=== PATIENT | female | born 1990 | race Caucasian/White ===

== ENCOUNTER 2016-07-28 11:13 | Emergency (ER) ==
[2016-07-28 13:50] LABS: MANUAL DIFF NEEDED? NO
[2016-07-28 13:50] LABS: URINE CULTURE NEEDED? NO; URINE MICRO REVIEW NEEDED? NO; URINE SOURCE CLEAN CATCH
[2016-07-28 13:56] LABS: BILIRUBIN URINE NEGATIVE (NEGATIVE); BLOOD URINE NEGATIVE (NEGATIVE); COLOR YELLOW; GLUCOSE URINE NEGATIVE (NEGATIVE); LEUKOCYTES URINE NEGATIVE (NEGATIVE); NITRITE URINE NEGATIVE (NEGATIVE); PROTEIN URINE NEGATIVE (NEGATIVE); SP GRAVITY URINE 1.015; TURBIDITY URINE CLEAR (CLEAR); UROBILINOGEN URINE NORMAL (NORMAL)
[2016-07-28 13:58] LABS: UR EPITHELIAL CELLS <10 /HPF (<10); URINE BACTERIA NEGATIVE /HPF; URINE RBC <10 /HPF (<10); URINE WBC <10 /HPF (<10)
[2016-07-28 14:01] LABS: BASO% 0.2 % (0.0-0.8); EOS# 0.06 X1000 (0.0-0.7); EOS% 1.4 % (0.0-10.0); HEMATOCRIT 35.3 % (37.0-47.0); HEMOGLOBIN 11.3 g/dL (12.0-16.0); LYMPH# 1.52 X1000 (1.2-3.4); LYMPH% 35.3 % (20.5-51.1); MCH 27.9 PG (27-31); MCV 87.2 FL (81-99); MPV 10.9 FL (7.4-10.4); NEUT% 49.1 % (42.2-75.2); PLT 113 X1000 (130-400); RBC 4.05 XMIL (4.2-5.4)
[2016-07-28 14:07] LABS: AGAP 11; ALBUMIN 3.8 g/dL (3.5-5.0); ALKALINE PHOSPHATASE 66 U/L (32-104); AMYLASE 90 U/L (20-200); BUN 10 mg/dL (8-22); CALCIUM 8.9 mg/dL (8.8-10.2); CHLORIDE 108 mmol/L (98-107); COSMO 281; GOT 91 U/L (10-30); GPT 203 U/L (10-36); LIPASE 83 U/L (13-60); POTASSIUM 4.1 mmol/L (3.5-5.1); SODIUM 141 mmol/L (136-145); TCO2 22 mmol/L (25-35); TOTAL BILIRUBIN 0.21 mg/dL (0.20-1.00); TOTAL PROTEIN 7.1 g/dL (6.3-8.3)
--- NOTE | 2016-07-28 14:11 | PROVIDER DOCUMENTATION ---
HPI-Abdominal Pain/GI Problem - General Chief Complaint: Extremity Pain Stated Complaint: BILA LEG PAIN Time Seen by Provider: 07/28/16 12:53 Source: patient Allergies/Adverse Reactions: Patient Allergies Allergy/AdvReac Type Severity Reaction Status Date / Time Penicillins Allergy HIVES Verified 07/28/16 11:22 Home Medications: Home Medication List Medication Instructions Recorded Confirmed Last Taken Type Famotidine [Pepcid] 20 mg PO DAILY #20 tablet 07/28/16 Unknown Rx Ibuprofen [Motrin] 800 mg PO Q8H PRN PRN #20 tablet 07/28/16 Unknown Rx - History of Present Illness-ABD Nature of Presenting Problems: 26 year old WF presents with c/o LUQ abd pain, bilateral lower extremity pain. pt reports the bilateral leg pain developed last night and she has been unable to sleep. the pain starts in bilateral knees, radiates to the hips and the ankles. pt denies ever having had this pain prior. pt reports she was dc'd from incarceration yesterday after a month. pt reports prior to her incarceration, she used IV amphetamines and opiates. she currently lives in a sober living environment. the LUQ abd pain has been present for 36 days, constant. she reports she has never been evaluated for the pain but does have a GI hx of IBS. Abdominal Pain Onset Location: reports: LUQ Pain Radiation: reports: no radiation Quality of Pain: reports: aching, dull Severity in ED: reports: mild Review of Systems - Adult - REVIEW OF SYSTEMS - ADULT Constitutional: reports: no symptoms reported. denies: chills, fever Eyes: reports: no symptoms reported. denies: discharge, blurred vision, double vision, redness Ears, Nose, Mouth & Throat: reports: no symptoms reported. denies: ear discharge, ear pain, nose pain, loose teeth, throat pain, throat swelling Cardiovascular: reports: no symptoms reported. denies: chest pain, palpitations , syncope Respiratory: reports: no symptoms reported. denies: chronic cough, cough, shortness of breath, wheezing Gastrointestinal: reports: see HPI, abdominal pain (LUQ). denies: hematemesis, constipation, diarrhea, difficulty swallowing, frequent heartburn, nausea, poor appetite, rectal bleeding, vomiting Genitourinary: reports: no symptoms reported. denies: dysuria, hematuria, urgency Musculoskeletal: reports: no symptoms reported. denies: bone pain, frequent leg cramps, joint pain, joint swelling, neck pain Integumentary: reports: no symptoms reported. denies: hives, itching, rash, skin sores/ulcer Neurological: reports: no symptoms reported Psychiatric: reports: no symptoms reported Endocrine: reports: no symptoms reported Hematologic/Lymphatic: reports: no symptoms reported Allergic/Immunologic: reports: no symptoms reported All Other Systems: Reviewed and Negative Past History - Adult - PAST MEDICAL HISTORY-ADULT Review of Records: reports: Old Records Reviewed, Nursing Assessment Review, Medications Reviewed, Social history reviewed & non-contributory. Major Childhood Illnesses: reports: denies history Cardiovascular: reports: denies history Respiratory: reports: denies history Gastrointestinal: reports: denies history Obstetrical/Gynecological: reports: denies history Genitourinary: reports: denies history Musculoskeletal: reports: denies history Neurological: reports: denies history Psychiatric: reports: anxiety, depression, psychiatric problems Endocrine/Immune: reports: denies history Other Conditions: reports: denies history - FAMILY HISTORY Family History: PE/DVT - SOCIAL HISTORY Smoking: denies, quit less than 1 year, cigarettes Substance Use: none presently/history of abuse, amphetamines, opiates Alcohol Use Frequency: never Living Situation: group Physical Exam-General - PHYSICAL EXAM-ADULT Initial Vital Signs Reviewed: Yes - CONSTITUTIONAL General Appearance: appears well, alert, mild distress. negative: no apparent distress, moderate distress, lethargic, slow to respond, obtunded, combative - EYES Eyes: pink conjunctivae. negative: conjuctival exudate, pale conjunctivae, sclera injected, scleral icterus, subconjunctival hemorrhage - HEAD, EARS, NOSE, MOUTH & THROAT HENMT: normocephalic/atraumatic, moist mucous membranes, normal ENT inspection, TMs normal, pharynx normal. negative: pharyngeal erythema, tonsillar exudate, TM abnormal, TM obscurred by cerumen, frontal tenderness, maxillary tenderness - NECK Neck: non-tender, full range of motion, supple, normal inspection. negative: C- spine tenderness, limited range of motion, tender lateral, tender midline - RESPIRATORY Respiratory: chest non-tender, lungs clear, normal breath sounds, no pleuratic chest pain, no respiratory distress, no accessory muscle use. negative: respiratory distress, decreased breath sounds, accessory muscle use, crackles, rales, rhonchi, stridor, wheezing - CARDIOVASCULAR Cardiovascular: normal peripheral pulses, regular rate, rhythm - CHEST (BREASTS) Chest/Breast: no tenderness - GASTROINTESTINAL (ABDOMEN) Abdominal Exam: normal bowel sounds, soft, no organomegaly, no pulsatile mass. negative: non tender, distended, guarding, rigid, rebound, tenderness (LUQ), hernia, mass, hepatomegaly, spleenomegaly, McBurney's point tenderness, Ruth' s sign, obturator sign, psoas, Rovsing's sign - GENITOURINARY Female Genitalia/Pelvic Exam: deferred Rectal Exam: deferred Hemoccult Exam: deferred - LYMPHATIC Lymphatic: no adenopathy. negative: cervical node tenderness - MUSCULOSKELETAL Back Exam: normal inspection, no CVA tenderness, no vertebral tenderness. negative: CVA tenderness, decreased range of motion, swelling, vertebral tenderness Extremity: normal range of motion, normal gait, normal inspection, no pedal edema, no calf tenderness, normal capillary refill, pelvis stable, tenderness ( bilateral knee pain with radition to bilateral hips and ankles.). negative: non -tender, abnormal NV exam, calf tenderness, deformity, erythema, inflammation, joint effusion, pulse deficit, pedal edema, slow capillary refill, swelling Peripheral Pulses: radial (R): 3+, radial (L): 3+, dorsalis-pedis (R): 3+, dorsalis-pedis (L): 3+ - SKIN Integumentary: normal color, normal turgor, warm/dry, other (negative for splinter hemorrhages). negative: embolic lesions - NEUROLOGIC Neurologic: grossly normal, no motor/sensory deficits. negative: facial droop, focal weakness, motor weakness, sensory deficit - PSYCHIATRIC Psych/Mental Status: normal mood/affect, normal thought content, normal thought process, oriented x 3 Progress - PLAN OF CARE/RESULTS Progress/Plan/Lab Results: Laboratory Tests 07/28/16 07/28/16 07/28/16 13:29 13:29 13:39 WBC RBC Hgb Hct MCV MCH MCHC RDW Std Deviation Plt Count MPV Immature Gran % (Auto) Neut % (Auto) Lymph % (Auto) Mason % (Auto) Eos % (Auto) Baso % (Auto) Immature Gran # (Auto) Neut # (Auto) Lymph # (Auto) Mason # (Auto) Eos # (Auto) Baso # (Auto) D-Dimer Sodium 141 Potassium 4.1 Chloride 108 H Carbon Dioxide 22 L Anion Gap 11 BUN 10 Creatinine 0.6 Estimated GFR/1.73 m2 > 60 BUN/Creatinine Ratio 17 Glucose 106 H Calculated Osmolality 281 Calcium 8.9 Total Bilirubin 0.21 AST 91 H ALT 203 H Alkaline Phosphatase 66 Total Protein 7.1 Albumin 3.8 Globulin 3.3 Albumin/Globulin Ratio 1.2 Amylase 90 Lipase 83 H Urine Source CLEAN CATCH Urine Color YELLOW Urine Turbidity CLEAR Urine pH 6.0 Ur Specific [place] 1.015 Urine Protein NEGATIVE Ur Glucose (Stick) NEGATIVE Ur Ketones (Stick) NEGATIVE Urine Blood NEGATIVE Urine Nitrite NEGATIVE Urine Bilirubin NEGATIVE Urobilinogen Dipstick NORMAL Urine Leukocytes NEGATIVE Urine WBC (Auto) <10 Urine RBC (Auto) <10 U Epithel Cells (Auto) <10 Urine Bacteria (Auto) NEGATIVE Urine Opiates Screen NONE DETECTED Ur Oxycodone Screen NONE DETECTED Ur Methadone, Qual NONE DETECTED Ur Barbiturates Screen NONE DETECTED Ur Phencyclidine Scrn NONE DETECTED Ur Amphetamines Screen NONE DETECTED U Benzodiazepines Scrn NONE DETECTED Urine Cocaine Screen NONE DETECTED U Cannabinoids Screen NONE DETECTED 07/28/16 07/28/16 13:39 13:39 WBC 4.30 L RBC 4.05 L Hgb 11.3 L Hct 35.3 L MCV 87.2 MCH 27.9 MCHC 32.0 L RDW Std Deviation 14.8 H Plt Count 113 L MPV 10.9 H Immature Gran % (Auto) 0.0 Neut % (Auto) 49.1 Lymph % (Auto) 35.3 Mason % (Auto) 14.0 H Eos % (Auto) 1.4 Baso % (Auto) 0.2 Immature Gran # (Auto) 0.00 Neut # (Auto) 2.11 Lymph # (Auto) 1.52 Mason # (Auto) 0.60 H Eos # (Auto) 0.06 Baso # (Auto) 0.01 D-Dimer 1.21 H Sodium Potassium Chloride Carbon Dioxide Anion Gap BUN Creatinine Estimated GFR/1.73 m2 BUN/Creatinine Ratio Glucose Calculated Osmolality Calcium Total Bilirubin AST ALT Alkaline Phosphatase Total Protein Albumin Globulin Albumin/Globulin Ratio Amylase Lipase Urine Source Urine Color Urine Turbidity Urine pH Ur Specific [place] Urine Protein Ur Glucose (Stick) Ur Ketones (Stick) Urine Blood Urine Nitrite Urine Bilirubin Urobilinogen Dipstick Urine Leukocytes Urine WBC (Auto) Urine RBC (Auto) U Epithel Cells (Auto) Urine Bacteria (Auto) Urine Opiates Screen Ur Oxycodone Screen Ur Methadone, Qual Ur Barbiturates Screen Ur Phencyclidine Scrn Ur Amphetamines Screen U Benzodiazepines Scrn Urine Cocaine Screen U Cannabinoids Screen Orders Category Date Time Status ED: Urine Bedside ORDERED Care 07/28/16 13:02 Active Orthostatic Vital Signs NOW Care 07/28/16 13:03 Active Saline Loc DIRECTED Care 07/28/16 13:02 Active NPO Diet 07/28/16 13:02 Completed ABD/PELVIS/PULM ARTERIES [CT] Stat Exams 07/28/16 16:06 Taken FLAT/UPRIGHT ABD/1 VIEW CHEST [RAD] Stat Exams 07/28/16 13:03 Draft AMYLASE [CHEM] Stat Lab 07/28/16 13:39 Completed CBC WITH ELECTRONIC DIFF [HEME] Stat Lab 07/28/16 13:39 Completed COMPREHENSIVE METABOLIC PANEL [CHEM] Stat Lab 07/28/16 13:39 Completed D-DIMER [CHEM] Stat Lab 07/28/16 13:39 Completed HEPATITIS PROFILE [HH] Stat Lab 07/28/16 17:20 Received LIPASE [CHEM] Stat Lab 07/28/16 13:39 Completed UDS [URINE DRUG SCREEN] Stat Lab 07/28/16 13:29 Completed URINALYSIS W/POSS RFLX CULT [URINALYSIS] Stat Lab 07/28/16 13:29 Completed US [Venous U/S Bilateral Legs] [CV] Stat Ther 07/28/16 14:42 Completed Vital Signs - 24 hr 07/28/16 07/28/16 07/28/16 11:17 13:44 13:45 Temperature 97.8 F Pulse Rate 108 H 86 Pulse Rate [ 87 Sitting] Pulse Rate [ 101 H Standing] Pulse Rate [ 78 Supine] Respiratory 20 18 Rate Blood Pressure 138/86 118/67 Blood Pressure 112/79 [Sitting] Blood Pressure 126/80 [Standing] Blood Pressure 118/67 [Supine] O2 Sat by Pulse 100 100 Oximetry 07/28/16 07/28/16 16:17 18:15 Temperature 98.1 F Pulse Rate 93 H 106 H Pulse Rate [ Sitting] Pulse Rate [ Standing] Pulse Rate [ Supine] Respiratory 17 17 Rate Blood Pressure 118/77 131/83 Blood Pressure [Sitting] Blood Pressure [Standing] Blood Pressure [Supine] O2 Sat by Pulse 100 100 Oximetry Reviewed case with Dr[address] Barrientos, agrees with plan of care and treatment. - XRAY 1 XRAY Study: Chest, Abdomen Impression: Normal - CT/MRI 1 CT Study: Abdomen, Pelvis, Thorax Impression: Abnormal (see EMR) Departure - Departure Time of Disposition Order: 17:59 DIAGNOSIS: LUQ abdominal pain, Leg pain, bilateral, Elevated d-dimer Disposition: HOME 01 Certified Medical Emergency: Emergent Condition: Stable Additional Instructions: Follow up at the [facility]. ED Follow Up Instructions: You have been treated by a care provider in the Emergency Department. These instructions are being provided to you so you can have an understanding of how to care for yourself upon discharge. Upon discharge from the Emergency Department, you are responsible for making arrangements for follow-up care by a physician of your choice. Take all prescribed medications as directed. Return to the Emergency Department immediately for any new or worsening symptoms. You may call the Physician Referral phone number at [phone] to obtain a list of Physicians who are taking new patients. Prescriptions: Ibuprofen [Motrin] 800 mg PO Q8H PRN PRN #20 tablet PRN Reason: inflammation Famotidine [Pepcid] 20 mg PO DAILY #20 tablet Referrals: None,PCP [Primary Care Provider] - [facility] [NON-STAFF] - Instructions: Abdominal Pain, Adult, [id number] Attestation - Physician/ PATRICIA Attestation Patient care was provided by Advanced Practice Provider:: Yes Advanced Practice Provider:: Meagan Motta Advanced Practice Provider documentation review:: The Mid-level provider documentation, treatment plan and medical decision making was reviewed by the physician who agrees with all treatment and medical decision making by the P.
[2016-07-28 14:27] LABS: UR AMPHETAMINES QUAL NONE DETECTED (NONE DETECT); UR BARBITUATES QUAL NONE DETECTED (NONE DETECT); UR BENZODIAZEPIN QUAL NONE DETECTED (NONE DETECT); UR CANNABINOIDS QUAL NONE DETECTED (NONE DETECT); UR COCAINE QUAL NONE DETECTED (NONE DETECT); UR METHADONE QUAL NONE DETECTED (NONE DETECT); UR OPIATES QUAL NONE DETECTED (NONE DETECT); UR OXYCODONE QUAL NONE DETECTED (NONE DETECT); UR PCP QUAL NONE DETECTED (NONE DETECT)
--- NOTE | 2016-07-28 14:42 | Diag Imaging Result Document ---
PROCEDURE NAME: FLAT/UPRIGHT ABD/1 VIEW CHEST - 07/28/2016 FRONTAL CHEST X-RAY AND 2 VIEWS OF THE ABDOMEN: COMPARISON: None. FINDINGS: The chest is clear. There is some mild constipation in the ascending and transverse colon. No bowel obstruction or free air. IMPRESSION: Mild constipation.
[2016-07-28 18:16] VITALS: BP 131/83
--- NOTE | 2016-07-29 09:54 | Diag Imaging Result Document ---
PROCEDURE NAME: ABD/PELVIS/PULM ARTERIES - 07/28/2016 CT ANGIOGRAM OF PULMONARY ARTERIES WITH CONTRAST: Exam performed with intravenous contrast. A dose-reduction protocol was used. COMPARISON: No comparison exam. FINDINGS: There is poor opacification of central pulmonary arteries which likely relates to timing of the contrast bolus. This limits the sensitivity of the exam for detecting pulmonary emboli. There is better opacification of more peripheral pulmonary artery branches, particularly at the lower lobes. There are no pulmonary artery filling defects identified. There is no indication of aortic dissection. There are mild emphysematous changes with small bullae at the apices. The lungs appear essentially clear. There is no consolidation, pleural effusion, or pneumothorax identified. IMPRESSION: 1. Poor opacification of central pulmonary arteries which limits the sensitivity of the exam for detecting pulmonary emboli. There are no pulmonary emboli identified, however. 2. Mild emphysematous changes. No other evidence of acute disease. CT ABDOMEN AND PELVIS WITH IV CONTRAST ONLY: Exam performed with intravenous contrast only per request of the referring provider. A dose-reduction protocol was used. FINDINGS: The liver is somewhat prominent in size. There is a tiny cyst at the dome of the liver. There is no other focal liver lesion identified. There is apparent periportal edema. This is nonspecific, although it can be seen with hepatitis. The remainder of the liver demonstrates homogeneous attenuation. Spleen is somewhat prominent, measuring 17.6 cm in superior inferior length by 10.3 cm in AP dimension by approximately 4.7 cm in width. The spleen has homogeneous attenuation. The gallbladder is contracted. There are no calcified gallstones or gross pericholecystic inflammatory changes identified. There is no pancreatic mass or inflammation identified. The left kidney demonstrates striated nephrogram. This is suspicious for left nephritis. The right kidney enhances homogeneously except for a nonspecific 1.1 cm low-density lesion at the anterior medial [id number] right kidney. There is no hydronephrosis identified. There are no substantially enlarged lymph nodes identified. There is no evidence of bowel obstruction. There is unopacified bowel at the right lower quadrant but what appears to represent the appendix has air in the lumen and shows no evidence of inflammation. There is no abnormal bowel wall thickening identified. There is no abscess identified. There is no free air or free fluid identified. Images of the pelvis show no abnormal mass or fluid collection. IMPRESSION: 1. Hepatosplenomegaly. Periportal edema which is nonspecific, although it can be seen with hepatitis. Correlation with clinical evaluation is recommended. 2. Contracted gallbladder. No calcified gallstones. No pericholecystic inflammation. 3. Striated left nephrogram suspicious for left nephritis. No hydronephrosis. Nonspecific 1.1 cm low-density lesion at [id number] right kidney. 4. No bowel obstruction. No evidence of appendicitis. The on-call radiologist provided preliminary results at 5:55 p.m. on 07/28/2016.
[2016-07-29 14:24] LABS: HEPATITIS PROFILE ACUTE SEE COMMENTS (())
== END 2016-07-28 18:15 | disposition home or self-care (01) ==
LOC: ED 11:13
DX: R10.12 Left upper quadrant pain (principal); M79.605 Pain in left leg; M79.604 Pain in right leg; R79.1 Abnormal coagulation profile; M25.562 Pain in left knee; M25.561 Pain in right knee; M25.552 Pain in left hip; M25.551 Pain in right hip; M25.572 Pain in left ankle and joints of left foot; M25.571 Pain in right ankle and joints of right foot; Z87.891 Personal history of nicotine dependence
CPT/HCPCS: 71275; 74022; 74177; 80053; 80074; 81001; 82150; 83690; 85025; 85379; 93970; G0480; Q9967; 80324; 80345; 80346; 80349; 80353; 80358; 80361; 80365; 83992